=== PATIENT | female | born 1970 | race Caucasian/White ===

== ENCOUNTER 2016-06-27 08:44 | Day surgery (SDC) | payer OTHER ==
--- NOTE | ~2016-06-27 | EGD ---
EGD REPORT [facility] [address] [address] NAME: JUANIS TAVARES : [birth year] STATUS : REG [facility] [place] PAT#: [id number] AGE: 45 ADM/REG DATE : 06/27/16 MR#: [id number] REPORT SERV DATE: 06/27/16 DICTATED BY: RICO LEE III DATE: 06/27/16 REPORT STATUS : Draft TRANSCRIBED BY: [facility] DATE: 06/27/16 Endoscopy Center Patient Name: Juanis Tavares Date of : 1970 Attending MD: RICO LEE III, MD Procedure Date No Time: 06/27/2016 Procedure: Colonoscopy Indications: High risk colon cancer surveillance: Personal history of colonic polyps Referring MD: KELLY MEDEROS MD Medicines: Propofol per Anesthesia Complications: No immediate complications. Procedure: Pre-Anesthesia Assessment: - ASA Grade Assessment: II - A patient with mild systemic disease. After I obtained informed consent, the scope was passed under direct vision. Throughout the procedure, the patient's blood pressure, pulse, and oxygen saturations were monitored continuously. The PCF [id number] was introduced through the anus and advanced to the terminal ileum. The colonoscopy was performed with ease. The patient tolerated the procedure well. The quality of the bowel preparation was good. Findings: Multiple diverticula were found in the entire colon. Internal hemorrhoids were found during retroflexion. A sessile polyp was found in the transverse colon. The polyp was 5 mm in size. The polyp was removed with a cold biopsy forceps. Resection and retrieval were complete. The terminal ileum appeared normal. Impression: - Diverticulosis in the entire examined colon. - Internal hemorrhoids. - One 5 mm polyp in the transverse colon. Resected and retrieved. - The examined portion of the ileum was normal. Recommendation: - Patient has a contact number available for emergencies. The signs and symptoms of potential delayed complications were discussed with the patient. Return to normal activities tomorrow. Written discharge instructions were provided to the patient. - Discharge patient to home. - Return to previous diet. EGD REPORT [address] [address] NAME: JUANIS TAVARES : [birth year] STATUS : REG [facility]#: [id number] AGE: 45 ADM/REG DATE : 06/27/16 MR#: [id number] REPORT SERV DATE: 06/27/16 DICTATED BY: RICO LEE III DATE: 06/27/16 REPORT STATUS : Draft TRANSCRIBED BY: [employer] DATE: 06/27/16 - Continue present medications. - Await pathology results. Procedure Code(s): --- Professional --- 87993, Colonoscopy, flexible, proximal to splenic flexure; with biopsy, single or multiple Diagnosis Code(s): --- Professional --- K64.8, Other hemorrhoids K57.30, Diverticulosis of large intestine without perforation or abscess without bleeding D12.3, Benign neoplasm of transverse colon Z86.010, Personal history of colonic polyps CPT copyright 2013 [employer]. All rights reserved. The codes documented in this report are preliminary and upon cut lace machine operator review may be revised to meet current compliance requirements. RICO LEE III, MD 06/27/2016 10:53 AM This report has been signed electronically. Number of Addenda: 0 Note Initiated On: 06/27/2016 10:28 AM Scope Withdrawal Time 0 hours 8 minutes 40 seconds [address] [address]
--- NOTE | ~2016-06-27 | EGD ---
EGD REPORT [facility] [address] [address] NAME: JUANIS TAVARES : [birth year] STATUS : REG [facility] PAT#: [id number] AGE: 45 ADM/REG DATE : 06/27/16 MR#: [id number] REPORT SERV DATE: 06/27/16 DICTATED BY: RICO LEE III DATE: 06/27/16 REPORT STATUS : Draft [facility]ANSCRIBED BY: [facility] DATE: 06/27/16 Endoscopy Center Patient Name: Juanis Tavares Date of : 1970 Attending MD: RICO LEE III, MD Procedure Date No Time: 06/27/2016 Procedure: Upper GI endoscopy Indications: Dyspepsia Referring MD: KELLY MEDEROS MD Medicines: Propofol per Anesthesia Complications: No immediate complications. Procedure: Pre-Anesthesia Assessment: - ASA Grade Assessment: II - A patient with mild systemic disease. After obtaining informed consent, the endoscope was passed under direct vision. Throughout the procedure, the patient's blood pressure, pulse, and oxygen saturations were monitored continuously. The GIF [id number] was introduced through the mouth, and advanced to the efferent jejunal loop. The upper GI endoscopy was accomplished with ease. The patient tolerated the procedure well. Findings: The examined esophagus was normal. A small hiatus hernia was present. Evidence of a gastric bypass was found. A gastric pouch with a normal size was found. The staple line appeared intact. The gastrojejunal anastomosis was characterized by healthy appearing mucosa. This was traversed. The [id number]-ct-hthgwbc limb was characterized by healthy appearing mucosa. The examined jejunum was normal. Impression: - Normal esophagus. - Hiatus hernia. - Gastric bypass with a normal-sized pouch intact staple line. - Normal examined jejunum. Recommendation: - Patient has a contact number available for emergencies. The signs and symptoms of potential delayed complications were discussed with the patient. Return to normal activities tomorrow. Written discharge instructions were provided to the patient. - Discharge patient to home. EGD REPORT [facility] [id number] [place]. [address] NAME: JUANIS TAVARES : [birth year] STATUS : REG [facility]#: [id number] AGE: 45 ADM/REG DATE : 06/27/16 MR#: [id number] REPORT SERV DATE: 06/27/16 DICTATED BY: RICO LEE III DATE: 06/27/16 REPORT STATUS : Draft TRANSCRIBED BY: [employer] DATE: 06/27/16 - Return to previous diet. - Follow an antireflux regimen. - Continue present medications. Procedure Code(s): --- Professional --- 48950, Esophagogastroduodenoscopy, flexible, transoral; diagnostic, including collection of specimen(s) by brushing or washing, when performed (separate procedure) Diagnosis Code(s): --- Professional --- K44.9, Diaphragmatic hernia without obstruction or gangrene Z98.84, Bariatric surgery status K30, Functional dyspepsia CPT copyright 2013 [employer]. All rights reserved. The codes documented in this report are preliminary and upon certified executive chef review may be revised to meet current compliance requirements. RICO LEE III, MD 06/27/2016 10:40 AM This report has been signed electronically. Number of Addenda: 0 Note Initiated On: 06/27/2016 10:30 AM Scope Withdrawal Time 0 hours 0 minutes 0 seconds [address] [address]
[~2016-06-27 08:44] MED LIST: CALTRA600D PO; COSENTYX SC; FLINTSTONE3 PO; HORMONE PELLETS SC; HUMIRA IJ; HUMIRA SC; KAPIDEX30 MG PO; LIOR10 PO; METHOC750B PO; MULTIPLE VIT PO; NAPRELAN500 MG PO; NUCYNTA50 MG PO; TRAZ50 PO; VIVELLE0.1 MG TD; ZEGERID1 CAP PO; [UNRECOGNIZED DRUG - OTHER]
== END 2016-06-27 23:59 | disposition home or self-care (01) ==
LOC: DMU 08:44
PROVIDERS: Internal Medicine Gastroenterology
PROC: 0DBL8ZZ Excision of Transverse Colon, Via Natural or Artificial Opening Endoscopic (ICD-10-PCS; principal; 2016-06-27 10:00)
PROC: 0DJ08ZZ Inspection of Upper Intestinal Tract, Via Natural or Artificial Opening Endoscopic (ICD-10-PCS; 2016-06-27 10:00)
DX: Z12.11 Encounter for screening for malignant neoplasm of colon (principal); Z86.010 Personal history of colon polyps; D12.3 Benign neoplasm of transverse colon; K57.30 Diverticulosis of large intestine without perforation or abscess without bleeding; K64.8 Other hemorrhoids; K44.9 Diaphragmatic hernia without obstruction or gangrene; K21.9 Gastro-esophageal reflux disease without esophagitis; K58.9 Irritable bowel syndrome, unspecified; K31.84 Gastroparesis; Z98.84 Bariatric surgery status; I34.1 Nonrheumatic mitral (valve) prolapse; N20.0 Calculus of kidney; J45.909 Unspecified asthma, uncomplicated; G43.909 Migraine, unspecified, not intractable, without status migrainosus; M45.9 Ankylosing spondylitis of unspecified sites in spine; M26.609 Unspecified temporomandibular joint disorder, unspecified side; Z88.2 Allergy status to sulfonamides; Z88.5 Allergy status to narcotic agent; Z88.8 Allergy status to other drugs, medicaments and biological substances; Z91.048 Other nonmedicinal substance allergy status; Z79.899 Other long term (current) drug therapy; Z98.41 Cataract extraction status, right eye; Z98.42 Cataract extraction status, left eye; Z96.1 Presence of intraocular lens; Z98.890 Other specified postprocedural states; Z90.49 Acquired absence of other specified parts of digestive tract; Z90.710 Acquired absence of both cervix and uterus; Z98.51 Tubal ligation status; Z98.82 Breast implant status; Z90.721 Acquired absence of ovaries, unilateral
CPT/HCPCS: 88305